=== PATIENT | female | born 1980 | race Two or more races ===

== ENCOUNTER 2016-06-06 18:48 | Emergency (ER) | payer MEDICAID ==
[~2016-06-06] VITALS: Ht 152.4 cm; Wt 53.5 kg
[~2016-06-06 18:48] MED LIST: CIPR500T4 PO; FER325 PO
[2016-06-06 18:53] VITALS: Ht 152.4 cm; Wt 53.5 kg
[2016-06-06] MEDS ORDERED: CYCL-319 PO (19:07)
[2016-06-06] MEDS ORDERED: NAPR-260 PO (19:08)
--- NOTE | 2016-06-07 00:09 | ERD ---
ER Documentation Chief Complaint Date/Time DATE: 06/07/16 TIME: 00:06 Chief Complaint upper back pain x 1 week HPI This patient is a 35-year-old female with no significant medical history presenting to the emergency department for right scapular pain ongoing intermittently for the past week. The patient was lifting a heavy box approximately 1 week ago when she felt the pain start soon after. The patient is taken Motrin at home with mild relief of symptoms. The patient states the symptoms are worse at night. The patient denies any cough, chest pain, shortness of breath, or other significant symptoms at this time. ROS All systems reviewed and are negative except as per history of present illness. Medications Home Meds Active Scripts Naproxen* (Naprosyn*) 500 Mg Tablet, 500 MG PO BID Y for PAIN AND/OR INFLAMMATION, #30 TAB Prov:TISHA LEE PA-C 06/06/16 Cyclobenzaprine Hcl* (Cyclobenzaprine Hcl*) 10 Mg Tablet, 10 MG PO TID, #15 TAB Prov:TISHA LEE PA-C 06/06/16 Ferrous Sulfate* (Ferrous Sulfate*) 325 Mg Tabec, 325 MG PO DAILY for 30 Days, TAB Prov:JILL PEREZ MD 01/19/14 Ciprofloxacin Hcl* (Ciprofloxacin Hcl*) 500 Mg Tablet, 500 MG PO BID for 14 Days , TAB Prov:JILL PEREZ MD 01/19/14 Allergies Allergies: Coded Allergies: No Known Allergies (Verified Allergy, Unknown, 01/14/14) PMhx/Soc History of Surgery: Yes (2X ) Anesthesia Reaction: No Hx Neurological Disorder: No Hx Respiratory Disorders: No Hx Cardiac Disorders: No Hx Psychiatric Problems: No Hx Miscellaneous Medical Probl: No Hx Alcohol Use: No Hx Substance Use: No Hx Tobacco Use: No FmHx Noncontributory for chief complaint Physical Exam Vitals Vital Signs Date Time Temp Pulse Resp B/P Pulse Ox O2 Delivery O2 Flow Rate FiO2 06/06/16 18:53 98.6 86 20 152/70 100 Physical Exam Const: The patient is resting comfortably in no acute distress. Head: Atraumatic Eyes: Normal Conjunctiva ENT: Normal External Ears, Nose and Mouth. Neck: Full range of motion..~ No meningismus. Resp: Clear to auscultation bilaterally Cardio: Regular rate and rhythm, no murmurs Abd: Soft, non tender, non distended. Normal bowel sounds Skin: No petechiae or rashes Back: No midline or flank tenderness MSK: There is mild tenderness to palpation of the right scapular area. The patient has full range of motion of bilateral shoulders. There is no tenderness to palpation of the shoulders bilaterally. Ext: No cyanosis, or edema Neur: Awake and alert Psych: Normal Mood and Affect Procedures/MDM 35-year-old female presents secondary to complaints of right scapular pain. On physical examination the patient's systolic blood pressure slightly elevated which I believe is secondary to pain. The patient's blood pressure was elevated (>120/80) but appears stable without evidence of hypertension emergency or urgency. The patient was counseled about the risks of hypertension and urged to pursue outpatient monitoring and therapy within a week with their primary care physician. There is tenderness palpation of the scapular area. The patient's diagnosis is injury of back and secondary diagnosis is back pain. The patient is stable for outpatient management with a prescription for Flexeril and naproxen. The patient understands the diagnosis and treatment plan. The patient was explicitly advised to return to the department immediately with any new or worsening symptoms and she demonstrates good understanding of this information. All questions and concerns of been addressed. Departure Diagnosis: Primary Impression: Injury of back Additional Impression: Back pain Condition: Fair Patient Instructions: Relieving Back Pain, Myalgias Referrals: [facility] Usted se smith hecho un examen mdico de control que le indica que no est en esau condicin que requiera tratamiento urgente en el Departamento de Emergencia. Un estudio ms profundo y el tratamiento de lebron condicin pueden esperar sin ningn riesgo hasta que usted sea atendida/o en el consultorio de lebron mdico o esau cl yamile. Es responsabilidad suya arreglar esau diana para el seguimiento del ji. MANEJO DE CONDICIONES NO URGENTES EN EL FUTURO 1) Si usted tiene un mdico de atencin primaria: Usted debera llamar a lebron mdico de atencin primaria antes de venir al departamento de emergencia. Despus de las horas de consultorio, lebron doctor o lebron asociado/a est disponible por telfono. El mdico o enfermero de caterina en el servicio telefnico puede asesorarle por jesús medio para atender el problema, o ji contrario se puede programar esau diana. 2) Si usted no tiene un mdico de atencin primaria: Llame al mdico o clnica de referencia que aparece abajo irena las horas de consultorio para hacer esau diana para que le vean. CLINICAS: [facility] [phone] [address] [facility] [phone] [address] [facility] [phone] [facility] [facility] [phone] [facility]. [facility] [phone] [address] [facility]. [phone] Additional Instructions: No mas mejor en 2-3 bolaños, regresar. Mas peor en 24 horas, regresear rapidamente. Ir a doctor primario in 5-7 bolaños. Usar instrucciones cuando gudelia medicamento. TISHA LEE PA-C Jun 07, 2016 00:09
== END 2016-06-06 19:11 | disposition home or self-care (01) ==
LOC: FTE 18:48 → E/R 19:11
DX: S29.9XXA Unspecified injury of thorax, initial encounter (principal); X50.0XXA Overexertion from strenuous movement or load, initial encounter; Y92.9 Unspecified place or not applicable
CPT/HCPCS: 99283

== ENCOUNTER 2016-11-20 16:35 | Emergency (ER) | payer MEDICAID, OTHER ==
[~2016-11-20] VITALS: Ht 157.5 cm; Wt 50.0 kg
[~2016-11-20 16:35] MED LIST changes: +CYCL-319 PO; +NAPR-260 PO
[2016-11-20 16:37] VITALS: Ht 157.5 cm; Wt 50.0 kg
--- NOTE | 2016-11-20 17:23 | ERA ---
ER Documentation Chief Complaint Date/Time DATE: 11/20/16 TIME: 17:20 Chief Complaint RT EAR PAIN X 1 WEEK HPI Otherwise healthy 28-year-old female presented with a chief complaints of right ear pain 2 days. Patient has not had symptoms like this before. Patient denies history of trauma, change/loss of hearing, tinnitus, headache, dizziness , kika-auricular pain, or neck stiffness. Vaccination status is up to date. Denies history of diabetes. No recent swimming. ROS All systems reviewed and are negative except as per history of present illness. Medications Home Meds Active Scripts Naproxen* (Naprosyn*) 500 Mg Tablet, 500 MG PO BID Y for PAIN AND/OR INFLAMMATION, #30 TAB Prov:TISHA LEE PA-C 06/06/16 Cyclobenzaprine Hcl* (Cyclobenzaprine Hcl*) 10 Mg Tablet, 10 MG PO TID, #15 TAB Prov:TISHA LEE PA-C 06/06/16 Ferrous Sulfate* (Ferrous Sulfate*) 325 Mg Tabec, 325 MG PO DAILY for 30 Days, TAB Prov:JILL PEREZ MD 01/19/14 Ciprofloxacin Hcl* (Ciprofloxacin Hcl*) 500 Mg Tablet, 500 MG PO BID for 14 Days , TAB Prov:JILL PEREZ MD 01/19/14 Allergies Allergies: Coded Allergies: No Known Allergies (Verified Allergy, Unknown, 01/14/14) PMhx/Soc History of Surgery: Yes (2X ) Anesthesia Reaction: No Hx Neurological Disorder: No Hx Respiratory Disorders: No Hx Cardiac Disorders: No Hx Psychiatric Problems: No Hx Miscellaneous Medical Probl: No Hx Alcohol Use: No Hx Substance Use: No Hx Tobacco Use: No Physical Exam Vitals Vital Signs Date Time Temp Pulse Resp B/P Pulse Ox O2 Delivery O2 Flow Rate FiO2 11/20/16 16:37 97.9 88 18 145/67 100 Physical Exam Const: Healthy-appearing. Well-nourished. Well-developed. No acute distress. Ears: Erythematous right external ear canal. Tympanic membrane intact. TMs visualized bilaterally, clear, light cone reflex visualized. Oral: No oral edema visualized. Mucous membranes moist and pink. Neck: No cervical lymphadenopathy, masses or goiter palpated. Non- tender. Trachea midline. Supple ~ No meningismus. Neur: Finger-rub test unremarkable. Awake, alert and oriented x3. Neurovascularly intact bilaterally. Pulm: No dyspnea, stridor, tripoding or drooling. Good air movement. Clear to auscultation bilaterally. Nose: Normal external nose; no discharge, septal deviation, or sinus tenderness. Head: Normocephalic, Atraumatic. Eyes: Non-injected; No scleral erythema, discharge or foreign body. EOMI and HANNAH bilaterally. Cardio: Regular rate and rhythm; No murmurs, gallops or rubs auscultated. Radial and posterior tibial pulses 2+ bilaterally. Capillary refill less than 2 seconds. Abd: Soft, non tender, non distended. No guarding, masses. Normal bowel sounds. No McBurney's point or suprapubic tenderness. MS: Normal motor strength, normal tone with gross examination. Skin: No petechiae or rashes. Good turgor. Back: No midline, flank or CVA tenderness. Ext: No cyanosis or edema. Normal movement of all extremities grossly observed. Psych: Normal Mood and Affect. Procedures/MDM Patient was evaluated for right ear discomfort presenting as described in the history and physical exam. ED treatment consisted of normal saline ear irrigation of the right ear performed by the nursing staff to better visualize the TM. TM was intact. The patients signs and symptoms are most consistent with otitis externa. The treatment will thus include Ciprodex GGT. At this time I do not suspect malignant otitis externa, hearing loss, intracranial pathology , foreign body, meningitis, or other serious bacterial infections. I have spoke with the patient regarding their condition and future management. They have verbally responded that they understand their status and treatment plan. The patient is well-appearing, vitals are stable, and their current condition is appropriate for discharge. The patient will be given discharge instructions with return precautions. Departure Diagnosis: Primary Impression: Otitis externa Additional Impression: Right ear pain Condition: Stable Additional Instructions: Follow up with your PCP within the next 1-3 days for a more thorough evaluation and a possible referral to a specialist. Return the the emergency department immediately if symptoms worsen or change. If you have any questions regarding medications, ask your pharmacist or us before you leave. If any adverse reactions occur while taking your medications, discontinue the treatment and return to the emergency department immediately. Take your medications as directed, and complete the entire course of treatment. CODY PATEL PA-C Nov 20, 2016 17:19
[2016-11-20] MEDS ORDERED: CIPR7.5D4 RIGHT EAR (18:42)
[2016-11-20 18:53] VITALS: BP 139/71; PULSE 78; RESP 18; TEMP 98
== END 2016-11-20 18:54 | disposition home or self-care (01) ==
LOC: FTE 16:35
DX: H60.91 Unspecified otitis externa, right ear (principal)
CPT/HCPCS: 69209; Z7502

== ENCOUNTER 2017-01-06 00:20 | Emergency (ER) | payer MEDICAID ==
[~2017-01-06] VITALS: Ht 157.5 cm; Wt 53.5 kg
[~2017-01-06 00:20] MED LIST changes: +CIPR7.5D4 RIGHT EAR
[2017-01-06 00:30] VITALS: Ht 157.5 cm; Wt 53.5 kg
[2017-01-06] MEDS ORDERED: KETOROLAC 60 MG INJ IM STA (03:01)
[2017-01-06] MEDS ORDERED: ACETAMINOPHEN 500 MG TAB PO STA (03:01)
[2017-01-06 04:08] LABS: ADD UMIC YES; UR ASCORBIC ACID NEGATIVE (NEGATIVE); UR BACTERIA FEW /HPF (NONE SEEN); UR BILIRUBIN (Dip) NEGATIVE (NEGATIVE); UR BLOOD (Dip) 2+ mg/dL (NEGATIVE); UR CLARITY CLOUDY (CLEAR); UR COLOR YELLOW (YELLOW); UR GLUCOSE (Dip) NEGATIVE (NEGATIVE); UR KETONES (Dip) NEGATIVE (NEGATIVE); UR LEUKOCYTE ESTERASE (Dip) 3+ Leu/ul (NEGATIVE); UR NITRITE (Dip) NEGATIVE (NEGATIVE); UR RBC 4 /HPF (0-5); UR SPECIFIC GRAVITY (Dip) 1.012 (1.003-1.030); UR SQUAMOUS EPITHELIAL CELL FEW /HPF (FEW); UR TOTAL PROTEIN (Dip) NEGATIVE (NEGATIVE); UR UROBILINOGEN (Dip) NEGATIVE (NEGATIVE)
[2017-01-06] MEDS ORDERED: CEFTRIAXONE 1 GM INJ IM STA (04:16)
[2017-01-06] MEDS ORDERED: CEPH-443 PO (04:24)
[2017-01-06] MEDS ORDERED: PHEN-538 PO (04:24)
--- NOTE | 2017-01-06 04:51 | ERD ---
ER Documentation Chief Complaint Date/Time DATE: 01/06/17 TIME: 04:49 Chief Complaint diff urinating with extreme pain since last week HPI 36-year-old female presenting to the emergency department complaining of painful urination Thursday and fever starting today. Patient denies any hematuria, flank pain. Patient states that she took ibuprofen earlier today ROS All systems reviewed and are negative except as per history of present illness. Medications Home Meds Active Scripts Phenazopyridine Hcl* (Pyridium*) 200 Mg Tab, 200 MG PO TID Y for URINARY PAIN, # 20 TAB Prov:MALLORY KELLEY PA-C 01/06/17 Cephalexin* (Keflex*) 500 Mg Capsule, 500 MG PO TID for 10 Days, CAP Prov:MALLORY KELLEY PA-C 01/06/17 Ciprofloxacin Hcl/Dexameth (Ciprodex Otic Suspension) 7.5 Ml Drops.susp, 4 DROP RIGHT EAR BID for 7 Days, EA Prov:CODY PATEL PA-C 11/20/16 Naproxen* (Naprosyn*) 500 Mg Tablet, 500 MG PO BID Y for PAIN AND/OR INFLAMMATION, #30 TAB Prov:TISHA LEE PA-C 06/06/16 Cyclobenzaprine Hcl* (Cyclobenzaprine Hcl*) 10 Mg Tablet, 10 MG PO TID, #15 TAB Prov:TISHA LEE PA-C 06/06/16 Ferrous Sulfate* (Ferrous Sulfate*) 325 Mg Tabec, 325 MG PO DAILY for 30 Days, TAB Prov:JILL PEREZ MD 01/19/14 Ciprofloxacin Hcl* (Ciprofloxacin Hcl*) 500 Mg Tablet, 500 MG PO BID for 14 Days , TAB Prov:JILL PEREZ MD 01/19/14 Allergies Allergies: Coded Allergies: No Known Allergies (Verified Allergy, Unknown, 01/14/14) PMhx/Soc Medical and Surgical Hx: pt denies Medical Hx History of Surgery: Yes (2X ) Anesthesia Reaction: No Hx Neurological Disorder: No Hx Respiratory Disorders: No Hx Cardiac Disorders: No Hx Psychiatric Problems: No Hx Miscellaneous Medical Probl: No Hx Alcohol Use: Yes (social) Hx Substance Use: No Hx Tobacco Use: No Smoking Status: Never smoker Physical Exam Vitals Vital Signs Date Time Temp Pulse Resp B/P Pulse Ox O2 Delivery O2 Flow Rate FiO2 01/06/17 00:30 102.0 131 20 124/72 98 Physical Exam General: well-developed/well-nourished, in no apparent distress, non-toxic appearing HENT: NC/AT Eyes: Conjunctiva normal Neck: Supple Pulm: CTA bilaterally, normal breathing CV: Normal S1S2 GI: Soft, non-distended, normal bowel sounds, TTP on suprapubic region Back: No midline tenderness, no masses, No CVAT Ext: No clubbing, cyanosis, or edema Neuro: Alert and orientated Skin: intact, normal turgor Psych: Normal mood and mentation Results 24 hrs Laboratory Tests Test 01/06/17 03:15 Urine Color YELLOW Urine Clarity CLOUDY Urine pH 5.0 Urine Specific [place] 1.012 Urine Ketones NEGATIVEmg/dL Urine Nitrite NEGATIVEmg/dL Urine Bilirubin NEGATIVEmg/dL Urine Urobilinogen NEGATIVEmg/dL Urine Leukocyte Esterase 3+Hanny/ul Urine Microscopic RBC 4/HPF Urine Microscopic WBC > 182/HPF Urine Squamous Epithelial Cells FEW/HPF Urine Bacteria FEW/HPF Urine Hemoglobin 2+mg/dL Urine Glucose NEGATIVEmg/dL Urine Total Protein NEGATIVEmg/dl Current Medications Medications (Trade) Dose Ordered Sig/Luli Route PRN Reason Start Time Stop Time Status Last Admin Dose Admin Acetaminophen (Tylenol Tab) 1,000 mg ONCE STAT PO 01/06/17 03:01 01/06/17 03:02 DC 01/06/17 03:32 Ketorolac Tromethamine (Toradol) 60 mg ONCE STAT IM 01/06/17 03:01 01/06/17 03:02 DC 01/06/17 03:32 Ceftriaxone Sodium (Rocephin) 1 gm ONCE STAT IM 01/06/17 04:16 01/06/17 04:17 DC 01/06/17 04:32 Procedures/MDM This is a 36-year-old female presenting to the emergency department with signs and symptoms most consistent with cystitis. On examination patient was febrile but she appears nontoxic. Patient is well-appearing and stable to be discharged home with outpatient antibiotics. In the ED, patient was given Toradol and Tylenol. Patient improved after medications. Vital signs are stable. Urinalysis positive for infection and was given ceftriaxone in the ED and a prescription for Keflex as an outpatient. Discussed the follow-up primary care physician, discussed return to the ER for any worsening signs or symptoms. She understands and agrees with this plan Departure Diagnosis: Primary Impression: Cystitis Condition: Stable Patient Instructions: Cystitis Additional Instructions: FOLLOW UP WITH YOUR PRIMARY CARE PHYSICIAN TOMORROW.Return to this facility if you are not improving as expected. Take all medicines as directed. Return to this facility if you are not improving as expected. MALLORY KELLEY PA-C Jan 06, 2017 04:51
[2017-01-06 05:00] VITALS: BP 100/56; PULSE 85; RESP 18; TEMP 98.1
== END 2017-01-06 05:01 | disposition home or self-care (01) ==
LOC: FTE 00:20
DX: N30.90 Cystitis, unspecified without hematuria (principal)
CPT/HCPCS: 81001; 96372; J0696; J1885; Z7502; Z7610

== ENCOUNTER 2017-02-17 22:34 | Inpatient (IN) | payer MEDICAID ==
[~2017-02-17] VITALS: Ht 157.5 cm; Wt 53.6 kg
[~2017-02-17 22:34] MED LIST changes: +CEPH-443 PO; +PHEN-538 PO
[2017-02-17 22:56] VITALS: Ht 157.5 cm; Wt 53.6 kg
[2017-02-17] MEDS ORDERED: ONDANSETRON 4 MG INJ IV STA ×2 (23:36→23:46)
[2017-02-17] MEDS ORDERED: SOD CHLORIDE 0.9% 1,000 ML IV STA ×2 (23:36→23:46)
[2017-02-17] MEDS ORDERED: HYDROCODONE/APAP (5/325) TAB PO STA (23:36)
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
[2017-02-17] MEDS ORDERED: morphine 4 MG/ML VIAL IV STA (23:46)
[2017-02-17] MEDS ORDERED: FAMOTIDINE 20 MG INJ IV STA (23:46)
[2017-02-18] MEDS ORDERED: HYDROCODONE/APAP (5/325) TAB PO ONE
[2017-02-18] MEDS ORDERED: morphine 4 MG/ML VIAL IV STA (00:09)
[2017-02-18 00:27] LABS: ADD UMIC YES; UR ASCORBIC ACID NEGATIVE (NEGATIVE); UR BACTERIA FEW /HPF (NONE SEEN); UR BILIRUBIN (Dip) NEGATIVE (NEGATIVE); UR BLOOD (Dip) 1+ mg/dL (NEGATIVE); UR CLARITY SLIGHTLY CLOUDY (CLEAR); UR COLOR YELLOW (YELLOW); UR GLUCOSE (Dip) NEGATIVE (NEGATIVE); UR KETONES (Dip) NEGATIVE (NEGATIVE); UR LEUKOCYTE ESTERASE (Dip) NEGATIVE Leu/ul (NEGATIVE); UR NITRITE (Dip) NEGATIVE (NEGATIVE); UR RBC 2 /HPF (0-5); UR SPECIFIC GRAVITY (Dip) 1.018 (1.003-1.030); UR SQUAMOUS EPITHELIAL CELL FEW /HPF (FEW); UR TOTAL PROTEIN (Dip) NEGATIVE (NEGATIVE); UR UROBILINOGEN (Dip) NEGATIVE (NEGATIVE)
[2017-02-18 00:38] LABS: BASOPHILS % 0.3 % (0.0-2.0); EOSINOPHILS # 0.1 10^3/ul (0.0-0.5); EOSINOPHILS % 1.4 % (0.0-7.0); HEMOGLOBIN 13.8 g/dl (12.0-16.0); LYMPHOCYTES # 1.8 10^3/ul (0.8-2.9); LYMPHOCYTES % 31.2 % (15.0-51.0); MEAN CORPUSCULAR HEMOGLOBIN 27.5 pg (29.0-33.0); MEAN CORPUSCULAR HGB CONC 35.4 g/dl (32.0-37.0); MEAN CORPUSCULAR VOLUME 77.7 fl (82.0-101.0); MEAN PLATELET VOLUME 10.5 fl (7.4-10.4); MONOCYTE # 0.7 10^3/ul (0.3-0.9); MONOCYTES % 11.4 % (0.0-11.0); NEUTROPHIL # 3.2 10^3/ul (1.6-7.5); NEUTROPHILS % 55.4 % (39.0-77.0); PLATELET COUNT 227 10^3/UL (140-415); RED BLOOD COUNT 5.02 10^6/ul (4.20-5.40); RED CELL DISTRIBUTION WIDTH 14.8 % (11.5-14.5); WHITE BLOOD COUNT 5.9 10^3/ul (4.8-10.8)
[2017-02-18 00:46] LABS: ALBUMIN 4.2 g/dl (3.3-4.9); ALBUMIN/GLOBULIN RATIO 0.95; BILIRUBIN,INDIRECT 0.3 mg/dl (0-1.1); BILIRUBIN,TOTAL 0.3 mg/dl (0.2-1.3); CALCIUM 9.4 mg/dl (8.4-10.2); CREATININE 0.61 mg/dl (0.44-1.00); POTASSIUM 4.3 mmol/L (3.5-5.1); TOTAL PROTEIN 8.6 g/dl (6.1-8.1)
--- NOTE | 2017-02-18 01:18 | RADRPT ---
PROCEDURE: CT abdomen and pelvis without intravenous contrast. CLINICAL INDICATION: Pain. TECHNIQUE: CT of the abdomen/pelvis was performed utilizing axial images with reconstructions in s agittal and coronal planes. The administered radiation dose is CTDI 6.3 mGy, DLP 327 mGy-cm. One or more of the following dose reduction techniques were used: automated exposure control, adjustment of the mA and/or kV according to patient size and/or use of iterative reconstruction technique. DICOM images are available. COMPARISON: No pertinent prior examinations were submitted for comparison. FINDINGS: Visualized Chest: There is some mild atelectasis within the left greater than right lung bases. Abdomen: The liver, spleen, pancreas, gallbladder,and adrenal glands are unremarkable. The kidneys are without hydronephrosis. No definite urinary calculi are seen. Several mildly dilated loops of small bowel are noted in the left abdomen. The more distal small bow el is collapsed. A focal transition point is not seen. The appendix is normal. No intra-abdominal f ree air is seen. There is no evidence of intra-abdominal adenopathy or free fluid. Pelvis: There is no evidence of pelvic adenopathy. The uterus and ovaries are without enlargement. The uri nary bladder is unremarkable. There is no pelvic free fluid. Osseous structures: Unremarkable. IMPRESSION: A few dilated loops of small bowel in the left abdomen possibly due to obstruction or focal ileus. RPTAT: HIKT .Sergio Olmos MD, MD Date Time Electronically viewed and signed by .Sergio Olmos MD, on 02/18/2017 01:17 .T/
[2017-02-18 02:54] VITALS: PULSE 105; TEMP 97.7
[2017-02-18 03:30] VITALS: BP 141/72; RESP 18
[2017-02-18] MEDS ORDERED: ONDANSETRON 4 MG INJ IV PRN (05:00)
[2017-02-18] MEDS ORDERED: morphine 4 MG/ML VIAL IV PRN (05:00)
[2017-02-18] MEDS: DEXTROSE 5%-0.45% NACL 1,000 ML IV SCH ×2 (05:15→12:17)
[2017-02-18 06:20] LABS: BASOPHILS % 0.2 % (0.0-2.0); EOSINOPHILS # 0.1 10^3/ul (0.0-0.5); EOSINOPHILS % 1.8 % (0.0-7.0); HEMATOCRIT 32.2 % (37.0-47.0); LYMPHOCYTES # 1.9 10^3/ul (0.8-2.9); LYMPHOCYTES % 37.9 % (15.0-51.0); MEAN CORPUSCULAR HEMOGLOBIN 27.2 pg (29.0-33.0); MEAN CORPUSCULAR HGB CONC 34.2 g/dl (32.0-37.0); MEAN CORPUSCULAR VOLUME 79.7 fl (82.0-101.0); MEAN PLATELET VOLUME 10.7 fl (7.4-10.4); MONOCYTE # 0.6 10^3/ul (0.3-0.9); NEUTROPHIL # 2.4 10^3/ul (1.6-7.5); NEUTROPHILS % 47.9 % (39.0-77.0); PLATELET COUNT 184 10^3/UL (140-415); RED BLOOD COUNT 4.04 10^6/ul (4.20-5.40); RED CELL DISTRIBUTION WIDTH 14.8 % (11.5-14.5)
[2017-02-18 07:00] LABS: ALBUMIN 3.4 g/dl (3.3-4.9); ALBUMIN/GLOBULIN RATIO 0.97; BILIRUBIN,INDIRECT 0.2 mg/dl (0-1.1); BILIRUBIN,TOTAL 0.2 mg/dl (0.2-1.3); CALCIUM 8.6 mg/dl (8.4-10.2); CREATININE 0.51 mg/dl (0.44-1.00); MAGNESIUM 1.8 mg/dl (1.7-2.5); POTASSIUM 3.9 mmol/L (3.5-5.1); TOTAL PROTEIN 6.9 g/dl (6.1-8.1)
[2017-02-18 07:16] VITALS: BP 114/56; RESP 18
--- NOTE | 2017-02-18 08:17 | RADRPT ---
PROCEDURE: US Abdomen and retroperitoneal complete. CLINICAL INDICATION: abdominal pain TECHNIQUE: Multiple real-time images were acquired of the patient's abdomen and retroperitoneum ut ilizing a high resolution transducer. COMPARISON: CT 02/18/2017; US ABDOMEN 01/15/2014 FINDINGS: The liver demonstrates normal echogenicity. The liver is normal in size and no focal solid lesions are seen. The portal vein is patent with normal direction of flow. No intrahepatic biliary dilatat ion is seen. The liver measures 13.4 cm in length. No gallstones are identified within the gallbladder. There is a small amount of sludge within the g allbladder. There is no pericholecystic fluid or gallbladder wall thickening. The common bile duct m easures 12 mm in maximal dimension. The pancreas was not seen due to overlying bowel gas. The spleen is normal in size. The spleen measures 10.7 cm in length. No free fluid is identified. The right kidney measures 9.5 cm. The left kidney measures 10.5 cm. There is no evidence of hydron ephrosis. There are no kidney stones. The proximal aorta measures 1.9 cm in transverse dimension. RPTAT: AA IMPRESSION: Small amount of sludge within the gallbladder. Dilated CBD measuring 1.2 cm. .Rancho Cleaning MD, MD Date Time Electronically viewed and signed by .Rancho Cleaning MD, on 02/18/2017 08:17 .S/
[2017-02-18] MEDS ORDERED: IOHEXOL 300MG/ML 150 ML BTL ONE (08:33)
[2017-02-18] MEDS ORDERED: SILVER SULFADIAZINE 1% 25 GM CR TOP SCH (09:00)
[2017-02-18] MEDS ORDERED: FAMOTIDINE 20 MG INJ IV SCH (09:00)
[2017-02-18] MEDS ORDERED: ACETAMINOPHEN 1000MG/100ML IV 100 ML IVPB PRN (10:30)
--- NOTE | 2017-02-18 11:57 | RADRPT ---
PROCEDURE: Small bowel follow-through. CLINICAL INDICATION: Abdomen pain. TECHNIQUE: Water-soluble contrast was administered orally and 7 radiographs of the abdomen were ob tained. COMPARISON: None. FINDINGS: The preliminary radiograph is normal. There is no small bowel displacement or mass. The small bowel folds are normal. There is no evidence of obstruction. Transit time is normal with contrast in the colon at 2 hours. In addition, on the 2-hour image contr ast is present throughout the colon and rectum. IMPRESSION: 1. Normal small bowel follow-through. 2. No evidence of obstruction. RPTAT: QQ .Rikki Giles MD, MD Date Time Electronically viewed and signed by .Rikki Giles MD, on 02/18/2017 11:56 .R/
[2017-02-18] MEDS ORDERED: SLSL1C50 TOP (12:40)
[2017-02-18 12:55] LABS: IRON 49 ug/dl (35-150)
[2017-02-18 13:04] LABS: TOTAL IRON BINDING CAPACITY 303 ug/dl (241-421)
[2017-02-18] MEDS ORDERED: CEPH-443 PO (13:07)
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
[2017-02-18 19:29] VITALS: BP 121/59; RESP 16
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
[2017-02-20] MEDS ORDERED: INFLUENZA VIRUS VACCINE 0.5 ML (DISPENSING) IM* ONE (09:00)
== END 2017-02-18 22:20 | disposition left against medical advice (07) | DRG 440 ==
LOC: FTE 22:34 → MS1 02-18 02:10
PROVIDERS: ADMIT Internal Medicine; ATTEND Internal Medicine
DX: K85.90 Acute pancreatitis without necrosis or infection, unspecified (principal); T21.32XD Burn of third degree of abdominal wall, subsequent encounter; T24.302D Burn of third degree of unspecified site of left lower limb, except ankle and foot, subsequent encounter; X12.XXXD Contact with other hot fluids, subsequent encounter
CPT/HCPCS: 74176; 74250; 76700; 80053; 81001; 83540; 83690; 83735; 85025; J0131; J2270; J2405; J7030; J7042; Q9967

== ENCOUNTER 2017-04-03 21:04 | Emergency (ER) | END 2017-04-04 06:30 | disposition home or self-care (01) ==

== ENCOUNTER 2018-08-25 20:30 | Emergency (ER) | payer MEDICAID ==
[~2018-08-25] VITALS: Wt 61.2 kg
[~2018-08-25 20:30] MED LIST changes: +CIPR7.5D RIGHT EAR; -CIPR7.5D4 RIGHT EAR; -CYCL-319 PO; +CYCL10TA7 PO; +HYDR-4011 PO; -NAPR-260 PO; +NAPR-688 PO; +NAPR-985 PO; +NITR-58 PO; +ONDA4TAB14 PO; +SLSL1C50 TOP
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
[2018-08-26] MEDS ORDERED: CEPH-443 PO (01:50)
[2018-08-26 01:57] VITALS: BP 131/70; PULSE 60; RESP 18
== END 2018-08-26 01:58 | disposition home or self-care (01) ==
LOC: FTE 20:30
DX: N30.01 Acute cystitis with hematuria (principal); N92.6 Irregular menstruation, unspecified; M54.5 Low back pain
CPT/HCPCS: 36415; 76801; 76817; 80053; 81001; 81025; 84702; 85025; 86900; 86901